=== PATIENT | female | born 1945 | race Caucasian/White ===

== ENCOUNTER 2019-03-23 10:25 | Observation (INO) | payer OTHER ==
--- NOTE | 2019-03-23 11:43 | EDPHYS ---
Physician Documentation [facility] Name: Ej Vilchis Age: 74 yrs Sex: Female : 1945 Arrival Date: 03/23/2019 Time: 10:27 Bed 20 Private MD: Chris Mancilla R ED Physician Juan David Montoya HPI: 03/23 10:49 This 74 yrs old Female presents to ER via Ambulatory with complaints of Foot jr8 Infection. 10:49 The complaints affect the right foot. Onset: The symptoms/episode began/occurred jr8 gradually, 2 day(s) ago. Modifying factors: The symptoms are alleviated by nothing, the symptoms are aggravated by weight bearing, movement. Associated signs and symptoms: The patient has no apparent associated signs or symptoms. Severity of symptoms: At their worst the symptoms were moderate, in the emergency department the symptoms are unchanged. The patient has not experienced similar symptoms in the past. The patient has been recently seen by a physician:. Patient stated that she had injured her foot over a week ago. Had imaging done with no fracture seen. Stated that she went to a week long class. Now having swelling to top of foot with fluctuant mass. Saw Surgeon and wants to do debridement of tissue secondary to abscess formation . Historical: - Allergies: 10:35 Lortab; aa5 - PMHx: 10:35 Thyroid problem; aa5 - PSHx: 10:35 None; aa5 - Immunization history:: Pneumococcal vaccine is up to date, Flu vaccine is not up to date. - Social history:: Smoking status: Patient/guardian denies using tobacco. - Ebola Screening: : No symptoms or risks identified at this time. ROS: 10:49 Eyes: Negative for injury, pain, redness, and discharge, ENT: Negative for injury, jr8 pain, and discharge, Neck: Negative for injury, pain, and swelling, Cardiovascular: Negative for chest pain, palpitations, and edema, Respiratory: Negative for shortness of breath, cough, wheezing, and pleuritic chest pain, Abdomen/GI: Negative for abdominal pain, nausea, vomiting, diarrhea, and constipation, Back: Negative for injury and pain, Skin: Negative for injury, rash, and discoloration, Neuro: Negative for headache, weakness, numbness, tingling, and seizure. 10:49 MS/extremity: Positive for erythema, pain, swelling, tenderness, of the dorsal surface right foot. Exam: 10:49 Eyes: Pupils equal round and reactive to light, extra-ocular motions intact. Lids and jr8 lashes normal. Conjunctiva and sclera are non-icteric and not injected. Cornea within normal limits. Periorbital areas with no swelling, redness, or edema. ENT: Nares patent. No nasal discharge, no septal abnormalities noted. Tympanic membranes are normal and external auditory canals are clear. Oropharynx with no redness, swelling, or masses, exudates, or evidence of obstruction, uvula midline. Mucous membranes moist. Neck: Trachea midline, no thyromegaly or masses palpated, and no cervical lymphadenopathy. Supple, full range of motion without nuchal rigidity, or vertebral point tenderness. No Meningismus. Cardiovascular: Regular rate and rhythm with a normal S1 and S2. No gallops, murmurs, or rubs. Normal PMI, no JVD. No pulse deficits. Respiratory: Lungs have equal breath sounds bilaterally, clear to auscultation and percussion. No rales, rhonchi or wheezes noted. No increased work of breathing, no retractions or nasal flaring. Abdomen/GI: Soft, non-tender, with normal bowel sounds. No distension or tympany. No guarding or rebound. No evidence of tenderness throughout. Back: No spinal tenderness. No costovertebral tenderness. Full range of motion. MS/ Extremity: Pulses equal, no cyanosis. Neurovascular intact. Full, normal range of motion. Neuro: Awake and alert, GCS 15, oriented to person, place, time, and situation. Cranial nerves II-XII grossly intact. Motor strength 5/5 in all extremities. Sensory grossly intact. Cerebellar exam normal. Normal gait. 10:49 Skin: Patient has approximately 2.5 x 2.5 cm area of redness, fluctuance, and tenderness noted to dorsum or right foot near the MTP region. No active draining or surrounding cellulitis noted . Vital Signs: 10:35 BP 208 / 92; Pulse 70; Resp 18 S; Temp 97.3(TE); Pulse Ox 100% on R/A; Weight 72.57 kg aa5 (R); Height 5 ft. 5 in. (165.10 cm) (R); Pain 4/10; 11:26 BP 185 / 72; Pulse 63; Resp 18; Pulse Ox 99% on R/A; aj1 11:41 BP 168 / 78; Pulse 62; Resp 18; Pulse Ox 99% on R/A; aj1 12:45 BP 166 / 73; Pulse 83; Resp 18; Pulse Ox 97% on R/A; aj1 13:45 BP 153 / 63; Pulse 75; Resp 18; Pulse Ox 97% on R/A; aj1 14:45 BP 145 / 88; Pulse 72; Resp 18; Pulse Ox 100% on R/A; aj1 10:35 Body Mass Index 26.63 (72.57 kg, 165.10 cm) aa5 MDM: 10:48 Patient medically screened. 8 11:40 Data reviewed: vital signs, nurses notes, lab test result(s). Data interpreted: Pulse 8 oximetry: on room air is 99 %. Interpretation: normal. Counseling: I had a detailed discussion with the patient and/or guardian regarding: the historical points, exam findings, and any diagnostic results supporting the discharge/admit diagnosis, lab results, the need for further work-up and treatment in the hospital. 12:26 ED course: Consulted Dr. Miller. Wants patient on his service. Surgery in the AM . 03/23 10:49 Order name: CBC with Diff; Complete Time: 12:20 03/23 10:49 Order name: Basic Metabolic Panel; Complete Time: 12:20 03/23 10:49 Order name: Blood Culture Adult (2) 03/23 12:27 Order name: XRAY Chest (1 view); Complete Time: 13:23 03/23 10:49 Order name: IV; Complete Time: 11:26 03/23 12:27 Order name: EKG; Complete Time: 12:30 03/23 12:27 Order name: EKG - Nurse/Tech; Complete Time: 13:30 03/23 12:36 Order name: Diet Regular; Complete Time: 12:38 Administered Medications: 13:54 Drug: LevaQUIN 500 mg Volume: 100 ml; Route: IVPB; Infused Over: 60 mins; Site: left aj1 hand; 14:58 Follow up: IV Status: Completed infusion; IV Intake: 100ml [facility] 15:27 Drug: vancoMYCIN 1 grams Route: IVPB; Infused Over: 2 hrs; Site: left hand; aj1 16:31 Follow up: IV Status: Infusion continued upon admission; IV Intake: 150ml aj1 Disposition: 03/23/19 11:40 Hospitalization ordered by Segundo Miller for Observation. Preliminary diagnosis is Cutaneous abscess of right foot. - Bed requested for Telemetry/MedSurg (Inpatient). - Status is Observation. aj1 - Condition is Stable. - Problem is new. - Symptoms are unchanged. UTI on Admission? No Addendum: 03/26/2019 09:28 Co-signature as Attending Physician, Juan David Montoya MD I agree with the assessment and k dr plan of care. Signatures: Dispatcher [employer] EDNadia Grace RN RN aj1 Juan David Montoya MD MD [facility] To Miller em1 Aleah Goldstein RN RN aa5 Jose Estrella PA PA jr8 Corrections: (The following items were deleted from the chart) 03/23 12:25 11:40 Hospitalization Ordered by Chris Mancilla MD for Inpatient Admission. Preliminary jr8 diagnosis is Cutaneous abscess of right foot. Bed requested for Telemetry/MedSurg (Inpatient). Status is Inpatient Admission. Condition is Stable. Problem is new. Symptoms are unchanged. UTI on Admission? No. jr8 13:32 12:25 03/23/2019 11:40 Hospitalization Ordered by Segundo Miller MD for Observation. em1 Preliminary diagnosis is Cutaneous abscess of right foot. Bed requested for Telemetry/MedSurg (Inpatient). Status is Observation. Condition is Stable. Problem is new. Symptoms are unchanged. UTI on Admission? No. jr8 16:32 13:32 03/23/2019 11:40 Hospitalization Ordered by Segundo Miller MD for Observation. aj1 Preliminary diagnosis is Cutaneous abscess of right foot. Bed requested for Telemetry/MedSurg (Inpatient). Status is Observation. Condition is Stable. Problem is new. Symptoms are unchanged. UTI on Admission? No. em1
--- NOTE | 2019-03-23 11:43 | ER ---
Nurse's Notes [facility] Name: Ej Vilchis Age: 74 yrs Sex: Female : 1945 Arrival Date: 03/23/2019 Time: 10:27 Bed 20 Private MD: Chris Mancilla R Diagnosis: Cutaneous abscess of right foot Presentation: 03/23 10:29 Note Pt requesting to go to restroom at this time. aa5 10:35 Presenting complaint: Patient states: "I injured my foot about 3 weeks ago and they did aa5 x-rays but it wasn't broken but there is this knot and redness on top of my foot and it's not going away". 10:35 Transition of care: patient was not received from another setting of care. Onset of aa5 symptoms was March 23, 2019. Risk Assessment: Do you want to hurt yourself or someone else? Patient reports no desire to harm self or others. Initial Sepsis Screen: Does the patient meet any 2 criteria? No. Patient's initial sepsis screen is negative. Does the patient have a suspected source of infection? No. Patient's initial sepsis screen is negative. Care prior to arrival: None. 10:35 Acuity: KENDRA 3 aa5 10:35 Method Of Arrival: Ambulatory aa5 Historical: - Allergies: 10:35 Lortab; aa5 - PMHx: 10:35 Thyroid problem; aa5 - PSHx: 10:35 None; aa5 - Immunization history:: Pneumococcal vaccine is up to date, Flu vaccine is not up to date. - Social history:: Smoking status: Patient/guardian denies using tobacco. - Ebola Screening: : No symptoms or risks identified at this time. Screenin:45 Abuse screen: Denies threats or abuse. Denies injuries from another. Nutritional aj1 screening: No deficits noted. Tuberculosis screening: No symptoms or risk factors identified. 16:30 Fall Risk None identified. aj1 Assessment: 10:45 General: Appears in no apparent distress. comfortable, Behavior is calm, cooperative, aj1 appropriate for age. Pain: Complains of pain in dorsum of right foot. Neuro: Level of Consciousness is awake, alert, obeys commands, Oriented to person, place, time, situation. Cardiovascular: Patient's skin is warm and dry. Respiratory: Airway is patent Respiratory effort is even, unlabored, Respiratory pattern is regular, symmetrical. GI: No signs and/or symptoms were reported involving the gastrointestinal system. : No signs and/or symptoms were reported regarding the genitourinary system. EENT: No signs and/or symptoms were reported regarding the EENT system. Derm: Abscess located on dorsum of right foot is half dollar sized, is red, is raised. Musculoskeletal: No signs and/or symptoms reported regarding the musculoskeletal system. Circulation, motion, and sensation intact. 11:45 Reassessment: Patient appears in no apparent distress at this time. No changes from aj1 previously documented assessment. Patient and/or family updated on plan of care and expected duration. Pain level reassessed. Patient is alert, oriented x 3, equal unlabored respirations, skin warm/dry/pink. 12:45 Reassessment: Patient and/or family updated on plan of care and expected duration. Pain aj1 level reassessed. General: Appears in no apparent distress. comfortable, Behavior is calm, cooperative, appropriate for age. Neuro: Level of Consciousness is awake, alert, obeys commands, Oriented to person, place, time, situation. Cardiovascular: Patient's skin is warm and dry. Respiratory: Airway is patent Respiratory effort is even, unlabored, Respiratory pattern is regular, symmetrical. Derm: Abscess located on dorsum of right foot. Musculoskeletal: Circulation, motion, and sensation intact. 13:45 Reassessment: Patient appears in no apparent distress at this time. No changes from aj1 previously documented assessment. Patient and/or family updated on plan of care and expected duration. Pain level reassessed. Patient is alert, oriented x 3, equal unlabored respirations, skin warm/dry/pink. 14:45 Reassessment: Patient and/or family updated on plan of care and expected duration. Pain aj1 level reassessed. General: Appears in no apparent distress. comfortable, Behavior is calm, cooperative, appropriate for age. Neuro: Level of Consciousness is awake, alert, obeys commands, Oriented to person, place, time, situation. Cardiovascular: Patient's skin is warm and dry. Respiratory: Airway is patent Respiratory effort is even, unlabored, Respiratory pattern is regular, symmetrical. Musculoskeletal: No signs and/or symptoms reported regarding the musculoskeletal system. Circulation, motion, and sensation intact. 15:04 Reassessment: Attempted to call report to 2nd floor, nurse is unavailable for report at aj this time, will call back later. 15:45 Reassessment: Patient appears in no apparent distress at this time. No changes from aj1 previously documented assessment. Patient and/or family updated on plan of care and expected duration. Pain level reassessed. Patient is alert, oriented x 3, equal unlabored respirations, skin warm/dry/pink. 16:30 Reassessment: Patient appears in no apparent distress at this time. No changes from aj1 previously documented assessment. Patient and/or family updated on plan of care and expected duration. Pain level reassessed. Patient is alert, oriented x 3, equal unlabored respirations, skin warm/dry/pink. Vital Signs: 10:35 BP 208 / 92; Pulse 70; Resp 18 S; Temp 97.3(TE); Pulse Ox 100% on R/A; Weight 72.57 kg aa5 (R); Height 5 ft. 5 in. (165.10 cm) (R); Pain 4/10; 11:26 BP 185 / 72; Pulse 63; Resp 18; Pulse Ox 99% on R/A; aj1 11:41 BP 168 / 78; Pulse 62; Resp 18; Pulse Ox 99% on R/A; aj1 12:45 BP 166 / 73; Pulse 83; Resp 18; Pulse Ox 97% on R/A; aj1 13:45 BP 153 / 63; Pulse 75; Resp 18; Pulse Ox 97% on R/A; aj1 14:45 BP 145 / 88; Pulse 72; Resp 18; Pulse Ox 100% on R/A; aj1 10:35 Body Mass Index 26.63 (72.57 kg, 165.10 cm) aa5 ED Course: 10:27 Patient arrived in ED. as 10:27 Chris Mancilla MD is Private Physician. as 10:29 Arm band placed on Patient placed in an exam room, on a stretcher. aa5 10:37 Jose Estrella PA is PHCP. jr8 10:37 Juan David Montoya MD is Attending Physician. jr8 10:38 Nadia Rice, SLOANE is Primary Nurse. aj1 10:40 Triage completed. aa5 10:45 Patient has correct armband on for positive identification. Bed in low position. Call aj1 light in reach. Side rails up X 1. 10:45 No provider procedures requiring assistance completed. aj1 11:26 Inserted saline lock: 20 gauge in left hand, using aseptic technique. aj1 11:40 Chris Mancilla MD is Hospitalizing Provider. jr8 11:56 First set of blood cultures drawn by lab staff. aj1 12:25 Segundo Miller MD is Hospitalizing Provider. jr8 12:55 XRAY Chest (1 view) In Process Unspecified. EDMS 16:02 Report given to SLOANE Velez on 2nd floor. aj1 16:29 Patient admitted, IV remains in place. aj1 Administered Medications: 13:54 Drug: LevaQUIN 500 mg Volume: 100 ml; Route: IVPB; Infused Over: 60 mins; Site: left aj1 hand; 14:58 Follow up: IV Status: Completed infusion; IV Intake: 100ml aj1 15:27 Drug: vancoMYCIN 1 grams Route: IVPB; Infused Over: 2 hrs; Site: left hand; aj1 16:31 Follow up: IV Status: Infusion continued upon admission; IV Intake: 150ml aj1 Intake: 14:58 IV: 100ml; Total: 100ml. aj1 16:31 IV: 150ml; Total: 250ml. aj1 Outcome: 11:40 Decision to Hospitalize by Provider. jr8 16:31 Admitted to Med/surg accompanied by tech, via wheelchair, with chart. aj1 16:31 Condition: stable 16:31 Discharge instructions given to patient, Instructed on the need for admit, Demonstrated understanding of instructions. 16:32 Patient left the ED. aj1 Signatures: Dispatcher [employer] EDMS Nadia Rice, RN RN aj1 Vy Miller Audri, RN RN aa5 Jose Estrella PA PA jr8
[2019-03-23 12:02] LABS: Absolute Lymphocytes (CBC) 1.1 K/uL (0.7-4.9); Basophils % 0.5 % (0-1.3); Hematocrit 45.1 % (36.0-45.0); Lymphocytes % 20.5 % (15.3-44.8); MPV 7.6 fL (7.6-11.3); RBC Red Blood Cell Count 4.86 M/uL (3.86-4.86)
[2019-03-23 12:16] LABS: Potassium 4.3 mmol/L (3.5-5.1)
--- NOTE | 2019-03-23 12:59 | RAD REPORT ---
EXAM DESCRIPTION: RAD - Chest Single View - 03/23/2019 12:54 pm CLINICAL HISTORY: pre op Chest pain. COMPARISON: CHEST PA AND LAT 2 VIEW dated 11/11/2014; CHEST PA AND LAT 2 VIEW dated 04/26/2013 FINDINGS: Portable technique limits examination quality. The lungs are grossly clear. The heart is normal in size. No displaced fractures. IMPRESSION: No acute intrathoracic process suspected.
[2019-03-23] MEDS ORDERED: Levofloxacin500mg IV 500 MG/100 ML BAG IV ONE (13:35)
--- NOTE | 2019-03-23 14:25 | EKG ---
Test Date: 2019-03-23 Test Time: 12:34:56 Digital Forensic Analyst: SALIMA MEASUREMENT RESULTS: Intervals: Rate: 66 NE: 160 QRSD: 88 QT: 430 QTc: 450 [place]: P: 49 NE: 160 QRS: 69 T: 43 INTERPRETIVE STATEMENTS: Normal sinus rhythm Normal ECG No previous ECG available for comparison Electronically Signed On 03-23-19 14:24:51 CDT by Hal Pza
[2019-03-23] MEDS ORDERED: NA CHLORIDE 0.9% 1,000 ML IV SCH (14:51)
[2019-03-23] MEDS ORDERED: MORPHINE 2 MG/ML SYR IV PRN (14:51)
[2019-03-23] MEDS ORDERED: ACETAMINOPHEN 500 MG TAB PO PRN (14:51)
[2019-03-23] MEDS ORDERED: ONDANSETRON 4 MG/2 ML VIAL IV PRN (14:51)
[2019-03-23] MEDS ORDERED: VANCOMYCIN 1.5 GM in NA CHLORIDE 0.9% 500 ML IVPB SCH ×4 (16:00)
[2019-03-23 17:12] VITALS: BMI 26.6
[2019-03-23] MEDS ORDERED: DIPHENHYDRAMINE 25 MG TAB/CAP PO PRN (20:08)
[2019-03-24] MEDS ORDERED: VANCOMYCIN/NS 1 gm 1 GM/250 ML BAG IVPB SCH
[2019-03-24] MEDS ORDERED: Ringers Lactate 1,000 ML IV ONE (06:36)
[2019-03-24] MEDS ORDERED: SUCCINYLCHOLINE 20 MG/ML (10 ML) IV ONE (06:57)
[2019-03-24] MEDS ORDERED: PROPOFOL 200 MG/20 ML VIAL IV ONE (06:59)
[2019-03-24] MEDS ORDERED: FENTANYL CITR 100 MCG/2 ML ONE (06:59)
--- NOTE | 2019-03-24 07:21 | P.BOP ---
Preoperative diagnosis: right foot celulitis, abscess Postoperative diagnosis: same Primary procedure: Incision and drainage of right foot abscess 5x5cm Estimated blood loss: <10cc Specimen: culture Findings: right foot celulitis, abscess, infected hematoma Anesthesia: General Complications: None Drain(s): Other Transferred to: Recovery Room Condition: Good
[2019-03-24] MEDS ORDERED: TRAMADOL 37.5mg/APAP 325mg PER TAB PO PRN (07:38)
[2019-03-24 07:50] VITALS: O2SAT 99
--- NOTE | 2019-03-24 08:24 | OP ---
Date of Procedure: 03/24/2019 Surgeon: Segundo Miller MD Preoperative Diagnoses: Right foot cellulitis and abscess status post trauma. Postoperative Diagnosis: Right foot cellulitis and abscess status post trauma. Procedure: Incision and drainage of right foot abscess, 5 x 5 cm. Estimated Blood Loss: Less than 10 cc. Specimen: Culture. Findings: Right foot cellulitis, abscess with infected hematoma. Anesthesia: General plus local. Indications: This is a case of a 74-year-old patient failed outpatient treatment, for treatment of r ight foot cellulitis. The patient developed an abscess after having contusion over the area. Found to have a possible infected hematoma. The benefits, alternatives, and risks of incision and drainage of right foot abscess was explained to the patient, which included not limited to infection, bleedin g, damage to adjacent structures, anesthesia complication, nonhealing wound, CT, and even . She also understood this may not relieve the symptoms. She might need more than 1 surgical intervention . She understood, signed consent. The area of concern was marked by me and the patient in the [facility] room. Description Of Procedure: The patient was brought to the operating room, placed in supine position. Anesthesia was done without complication. A time-out was called, right foot was prepped and draped in a sterile fashion. Local anesthetic applied followed by sharp incision of the skin. Immediately, we noticed that infected hematoma present. All the hematoma was completely clean. The area was irri gated. Loculations were explored and opened. We do not see any bone exposed. At that moment, I pac ked the area with wet-to-dry dressing after obtaining hemostasis and covered with sterile dressings. The patient tolerated the procedure well. The patient was sent to Recovery in stable condition. TIANA/SCARLET Voice ID: [id number] Report ID: [id number]
[2019-03-24 09:48] VITALS: BP 138/77; TEMP 97.3
[2019-03-24] MEDS ORDERED: Levofloxacin500mg IV 500 MG/100 ML BAG IV SCH (12:00)
--- NOTE | 2019-03-26 08:30 | HP ---
Date of Admission: 03/23/2019 Reason For Service: Cellulitis and abscess of the right foot. History Of Present Illness: This is the case of a -cosx-mzg patient, had an injury about 2 -1/2-weeks ago . She has no broken bones but noticed in the last several days increased te mperature over the area, increased redness on dorsum of the foot. patient was started on antibiotics by mouth, but yesterday she noticed that it was getting worse. She went to the [facility], sent to my office immediately. She states she has been taking her antibiotics bouchra abreu. She denies any dysuria, hematuria, hematochezia, or melena. The patient was admitted to the [facility] and plan for incision and drainage of right foot abscess, possible infected hematoma. Allergies: LORTAB. Medical History: Thyroid disease. Past Surgeries: None. Social History: She does not smoke. She does not drink alcohol. Family History: Unremarkable. Review of Systems: Ten points otherwise unremarkable. Physical Examination: General: Patient is awake and alert. HEENT: Pupils are equal and reactive, anicteric. Neck: Supple. Chest: Clear. Heart: S1, S2. Abdomen: Soft and depressible. Nontender, nondistended. Bowel sounds positive. Extremities: The right foot area, dorsalis pedis pulses are present. The patient has infection and abscess . No open wounds. No cyanosis. Neuro: Cranial nerve 2 through 12 grossly within normal limits. Laboratory Data: Blood work shows WBC count 5.6, hemoglobin of 15.6, chloride is 108. Chest x-ray, no acute process. The right foot x-ray was not done since the patient claims she already had it done. She does not want to do it again and she told it was negative. I do not f ind those reports this area here. The patient is moving and has full range of motion of the area, so we encouraged her to bring us the report. Assessment: This is a 74-year-old patient with an abscess of the right foot. Patient needs incision and drainage. She is very tender. She wants to have it done under anesthesia so we called anesthes ia and the OR team and explained to her the incision and drainage with benefits, alternatives and ris ks, which include, but not limited to infection, bleeding, damage to adjacent structures, anesthesia complication, nonhealing wound, CT, and even . She also understands this may not relieve any sy mptoms. She might need more than one surgical intervention. She understood, signed a consent. BETINA Voice ID: [id number]
--- NOTE | 2019-03-26 08:33 | DS ---
Date of Discharge: 03/24/2019 Diagnoses: Right foot cellulitis, abscess, infected hematoma. Procedure: Incision and drainage of a right foot abscess. Disposition: Home. Discharge Instructions: Keep dressing intact, then will go wet-to-dry dressing daily. Followup: Follow up in my office this Tuesday. Medications: Include Levaquin q.4 hours p.r.n. pain. She was on previous antibiotics, did not work. She has a collection of antibiotics she does not want. She stated that hydrocodone gave her some n ausea so we are trying to get Ultracet for her pain. TIANA/SCARLET Voice ID: [id number] Report ID: [id number]
== END 2019-03-24 12:00 | disposition home or self-care (01) ==
LOC: ER 10:25 → ERHOLD 12:57 → 2ND 16:09
PROVIDERS: ADMIT Surgery; ATTEND Surgery
PROC: 0J9Q0ZZ Drainage of Right Foot Subcutaneous Tissue and Fascia, Open Approach (ICD-10-PCS; principal; 2019-03-24 07:00)
DX: L02.611 Cutaneous abscess of right foot (principal); L03.115 Cellulitis of right lower limb; E07.9 Disorder of thyroid, unspecified
CPT/HCPCS: 10140; 96365; 96367; 93005; 87040 ×2; 87070; 85025; 80048; 36415; 87205; 87075; 71045; 99285; J2704; J3010; J7030; G0378 ×2; J0330

== ENCOUNTER 2019-07-16 08:43 | Day surgery (SDC) | payer OTHER ==
--- NOTE | 2019-07-11 14:34 | RAD REPORT ---
EXAM DESCRIPTION: Francine Epstein (2 Views)07/11/2019 2:27 pm CLINICAL HISTORY: Preop for temporal artery biopsy COMPARISON: March 2019 FINDINGS: The lungs appear clear of acute infiltrate. The heart is normal size IMPRESSION: No acute abnormalities displayed
[2019-07-11 14:50] LABS: Absolute Lymphocytes (CBC) 1.6 K/uL (0.7-4.9); Basophils % 0.7 % (0-1.3); Hematocrit 45.1 % (36.0-45.0); MPV 7.9 fL (7.6-11.3); RBC Red Blood Cell Count 4.86 M/uL (3.86-4.86)
[2019-07-11 15:13] LABS: Potassium 4.2 mmol/L (3.5-5.1)
--- NOTE | 2019-07-11 23:13 | EKG ---
Test Date: 2019-07-11 Test Time: 14:15:15 Electoral Officer: BOBBY MEASUREMENT RESULTS: Intervals: Rate: 57 OK: 172 QRSD: 90 QT: 436 QTc: 424 [place]: P: 66 OK: 172 QRS: 72 T: 62 INTERPRETIVE STATEMENTS: Sinus bradycardia Otherwise normal ECG Compared to ECG 03/23/2019 12:34:56 Sinus rhythm no longer present Electronically Signed On 07-11-19 23:12:58 CABLE SPLICER by Hal Paz
[2019-07-16] MEDS ORDERED: Ringers Lactate 1,000 ML IV ONE (09:28)
[2019-07-16] MEDS ORDERED: FENTANYL CITR 100 MCG/2 ML ONE (10:57)
[2019-07-16] MEDS ORDERED: MIDAZOLAM HCL 2 MG/2 ML INJ ONE (10:58)
[2019-07-16] MEDS ORDERED: PROPOFOL 200 MG/20 ML VIAL IV ONE (10:58)
[2019-07-16] MEDS ORDERED: LIDOCAINE 2% MPF 5 ML VIAL ONE (10:58)
[2019-07-16] MEDS ORDERED: CEFAZOLIN/SWI 1gm 1 GM/10 ML SYR ONE (11:20)
--- NOTE | 2019-07-16 12:19 | P.BOP ---
Preoperative diagnosis: right temporal hyperpigmentated assymmetrical skin mass Postoperative diagnosis: same Primary procedure: Wide excision of R temporal hyperpigmentated assymmetrical skin mass Secondary procedure: 2x1.7 cm Estimated blood loss: <10cc Specimen: mass Anesthesia: General Complications: None Transferred to: Recovery Room Condition: Good
[2019-07-16] MEDS ORDERED: EPHEDRINE SULF 50 MG/ML VIAL ONE (12:21)
[2019-07-16 13:43] VITALS: BP 155/65; TEMP 97.4; O2SAT 97
--- NOTE | 2019-07-25 20:58 | OP ---
Surgeon: Segundo Miller MD Diagnosis: Right temporal hyperpigmented asymmetrical skin mass. Procedure: Wide excision of right temporal mass. Disposition: Home. Activity: As tolerated. No heavy lifting. Followup: Follow up in my office in 1 week. Call for appointment [phone]. Keep area dry for 48 ho urs, then may shower. TIANA/SCARLET Voice ID: [id number] Report ID: [id number]
--- NOTE | 2019-07-25 20:58 | OP ---
Surgeon: Segundo Miller MD Preoperative Diagnosis: Right temporal hyperpigmented asymmetrical skin mass. Postoperative Diagnosis: Right temporal hyperpigmented asymmetrical skin mass. Procedure Performed: Wide excision of right temporal hyperpigmented asymmetrical skin mass 2 x 1.7 c m. Specimen: Mass. Complications: None. Indications: This is the case of a female who comes to us with a skin graft in the right temporal re gion suspicious for cancer with asymmetrical shape and color and discoloration. She wants that compl etely excised. The benefits, alternatives, and risks of wide excision were fully explained to the pa tiegomez, which include, but are not limited to infection, bleeding, damage to adjacent structures, anes thesia complications, recurrence, IL, and even . She also understands this may not relieve any symptoms, she might need more than one surgical intervention. She understood, signed the consent. T he area of concern was marked by me and the patient in the holding room. Description Of Procedure: The patient was brought to the operating room, placed in supine position. Anesthesia was done without complication. The right temporal region was prepped and draped in steri le fashion. A wide excision of the area was done with a sharp knife all the way down to the subcutan eous tissue. Mass was excised, sent to the pathologist. The area was irrigated and then we proceede d to close the area with 3-0 chromic and then Dermabond. Sponge counts and instrument counts were co rrect. Patient tolerated the procedure well. The mass was removed with gross negative margins. Patient was sent to the recovery in stable condition. TIANA/SCARLET Voice ID: [id number] Report ID: [id number]
== END 2019-07-16 14:10 | disposition home or self-care (01) ==
LOC: OR 08:43
PROVIDERS: ATTEND Surgery
PROC: 0HB1XZZ Excision of Face Skin, External Approach (ICD-10-PCS; principal; 2019-07-16 12:00)
DX: L82.1 Other seborrheic keratosis (principal); I10 Essential (primary) hypertension; E07.9 Disorder of thyroid, unspecified; M19.90 Unspecified osteoarthritis, unspecified site; Z88.2 Allergy status to sulfonamides; Z88.6 Allergy status to analgesic agent; Z80.1 Family history of malignant neoplasm of trachea, bronchus and lung
CPT/HCPCS: 11442; 93005; 85025; 80048; 36415; 88331; 88332; 88305; 71046; J2704; J2250; J3010; J0690; J7120

== ENCOUNTER 2023-01-02 17:22 | Emergency (ER) | payer OTHER ==
--- OUTSIDE RECORDS SUMMARY | 2023-01-02 17:26 | XMS REPORT | Continuity of Care Document ---
:1945 [address] [facility] t Address [address] [place] [id number] Care Team Providers Name Role Phone [email or web address] Attending Clinician Unavailable Silvano Admitting Clinician Unavailable Payers Payer Name Policy Type Policy Number Effective Date Expiration Date S isid[facility] [place] - [id number] 9900-01-01 [employer] 00:00:00 (MEDICARE REPLACEMENT/ADVANT AGE - HMO) Problems This patient has no known problems. Allergies, Adverse Reactions, Alerts This patient has no known allergies or adverse reactions. Medications This patient has no known medications. Procedures This patient has no known procedures. Encounters Start End Encounter Admission Attending Care Care Encounter Source Date/Time Date/Time Type Type Clinicians Facility Department ID 2019-10-03 2019-10-03 Outpatient Ye [facility] [phone] [facility] 07:17:00 07:17:00 _[id number] Family Practic e Results This patient has no known results.
--- NOTE | 2023-01-02 19:01 | EDPHYS ---
Physician Documentation [facility] Name: Ej Vilchis Age: 77 yrs Sex: Female : 1945 Arrival Date: 01/02/2023 Time: 17: Bed 16 Private MD: ED Physician Xiang Lan HPI: 01/02 17:44 This 77 yrs old Female presents to ER via Wheelchair with complaints of Leg Injury. jmm 17:44 The patient presents with an injury. Onset: The symptoms/episode began/occurred jmm acutely, yesterday. Modifying factors: The symptoms are alleviated by nothing. the symptoms are aggravated by nothing. This is a 77 year old female with a history of hypothyroidism that presents to the ED with complaints of left lower leg laceration which occurred after getting hit by a leather cassette bag. Denies other injury. Wound was cleaned with betadine. Denies active bleeding, weakness, difficulty with ambulation/weight bearing . Historical: - Allergies: 17:49 Lortab; iw - PMHx: 17:49 Thyroid problem; iw ROS: 17:44 Constitutional: Negative for fever, chills, and weight loss, Cardiovascular: Negative jmm for chest pain, palpitations, and edema, Respiratory: Negative for shortness of breath, cough, wheezing, and pleuritic chest pain. 17:44 MS/extremity: Positive for injury or acute deformity, laceration. 17:44 All other systems are negative. Exam: 17:44 Constitutional: This is a well developed, well nourished patient who is awake, alert, jmm and in no acute distress. Head/Face: atraumatic. Eyes: EOMI, no conjunctival erythema appreciated ENT: Moist Mucus Membranes Neck: Trachea midline, Supple Chest/axilla: Normal chest wall appearance and motion. Cardiovascular: Regular rate and rhythm. No edema appreciated Respiratory: Normal respirations, no respiratory distress appreciated Abdomen/GI: Non distended Back: Normal ROM 17:44 Skin: skin tear noted to the left lower leg, no purulent drainage, no active bleeding, no erythema appreciated. 17:44 Neuro: Orientation: appropriate for stated age, Mentation: is normal, Memory: is normal. 17:44 Psych: Behavior/mood is pleasant, cooperative. Vital Signs: 17:48 BP 145 / 82; Pulse 57; Resp 16; Temp 98.1; Pulse Ox 98% on R/A; iw MDM: 17:44 Patient medically screened. [facility] 18:59 Data reviewed: vital signs, nurses notes, radiologic studies. Counseling: I had a [facility] detailed discussion with the patient and/or guardian regarding: the historical points, exam findings, and any diagnostic results supporting the discharge/admit diagnosis, the need for outpatient follow up, to return to the emergency department if symptoms worsen or persist or if there are any questions or concerns that arise at home. ED course: Wound cleaned in the ED. Wet to dry dressing applied. Patient advised to follow up with wound healing clinic. Patient otherwise given strict return precautions. patient understood and agrees with the plan of care. . 01/02 18:04 Order name: Misc. Order; Complete Time: 19:46 [facility] 01/02 18:04 Order name: Wound Care: wet to dry; Complete Time: 19:46 [facility] Administered Medications: 19:56 Drug: Doxycycline PO 100 mg Route: PO; iw Disposition Summary: 01/02/23 19:01 Discharge Ordered Location: Home [facility] Condition: Stable [facility] Diagnosis - Skin Tear, Lower Leg, initial visit [facility] Followup: [facility] - With: Segundo Miller MD - When: 2 - 3 days - Reason: Recheck today's complaints, Continuance of care, Re-evaluation by your physician Discharge Instructions: - Discharge Summary Sheet [facility] - Nonsutured Laceration Care [facility] - Skin Tear [facility] Forms: - Medication Reconciliation Form [facility] - Thank You Letter [facility] - Antibiotic Education [facility] - Prescription Opioid Use [facility] Prescriptions: - Doxycycline Hyclate 100 mg Oral Tablet - take 1 tablet by ORAL route every 12 hours; 20 tablet; Refills: 0, Product [facility] Selection Permitted Signatures: Nathan Merrill PA PA jmm Williams, Irene, RN RN iw
--- NOTE | 2023-01-02 19:01 | ER ---
Nurse's Notes [facility] Name: Ej Vilchis Age: 77 yrs Sex: Female : 1945 Arrival Date: 01/02/2023 Time: 17:22 Bed 16 Private MD: Diagnosis: Skin Tear, Lower Leg, initial visit Presentation: 01/02 17:48 Chief complaint: Spouse and/or significant other states: skin tear to right lateral iw espinal , happened last night. Coronavirus screen: At this time, the client does not indicate any symptoms associated with coronavirus-19. Ebola Screen: Patient negative for fever greater than or equal to 101.5 degrees Fahrenheit, and additional compatible Ebola Virus Disease symptoms Patient denies exposure to infectious person. Patient denies travel to an Ebola-affected area in the 21 days before illness onset. No symptoms or risks identified at this time. Initial Sepsis Screen: Does the patient meet any 2 criteria? No. Patient's initial sepsis screen is negative. Does the patient have a suspected source of infection? No. Patient's initial sepsis screen is negative. Risk Assessment: Do you want to hurt yourself or someone else? Patient reports no desire to harm self or others. Onset of symptoms was January 01, 2023. 17:48 Method Of Arrival: Wheelchair iw 17:48 Acuity: KENDRA 4 iw Historical: - Allergies: 17:49 Lortab; iw - PMHx: 17:49 Thyroid problem; iw Vital Signs: 17:48 BP 145 / 82; Pulse 57; Resp 16; Temp 98.1; Pulse Ox 98% on R/A; iw ED Course: 17:24 Patient arrived in ED. ts1 17:37 Nathan Merrill PA is PHCP. m 17:37 Xiang Lan MD is Attending Physician. [facility] 17:49 Triage completed. iw 17:49 Arm band placed on. iw 18:28 Verna Haynes, SLOANE is Primary Nurse. eh3 19:00 Segundo Miller MD is Referral Physician. [facility] Administered Medications: 19:56 Drug: Doxycycline PO 100 mg Route: PO; iw Outcome: 19:01 Discharge ordered by . [facility] 19:56 Patient left the ED. Signatures: Nathan Merrill PA PA jmm Williams, Irene, RN RN iw Verna Haynes, RN RN eh3 Zayra Llamas, PAS PAS ts1
[2023-01-02] MEDS ORDERED: DOXYCYCLINE 100 MG CAP PO ONE (19:55)
[2023-01-02 20:43] VITALS: BP 145/82; TEMP 98.1; O2SAT 98
== END 2023-01-02 19:56 | disposition home or self-care (01) ==
LOC: ER 17:22
DX: S81.812A Laceration without foreign body, left lower leg, initial encounter (principal); Z88.5 Allergy status to narcotic agent